=== PATIENT | female | born 1940 | race Caucasian/White ===

== ENCOUNTER 2016-07-22 15:47 | Emergency (ER) | payer OTHER ==
[~2016-07-22] VITALS: Ht 167.6 cm; Wt 111.7 kg
[~2016-07-22 15:47] MED LIST: BUMEX2 MG PO; FLEXERIL10 MG PO; HUMALOG MI100 UNIT/1 IJ; K-DUR20 MEQ PO; LEVEMIR FL100 UNIT/1 IJ; MECLIZINE HCL25 MG PO; METOPROLOL TAR100 MG PO; PERCOCET 7.51 TABLET PO; SIMVASTATIN20 MG PO; SYNTHROID100 MCG PO
[2016-07-22 17:14] LABS: INTER. NORMALIZED RATIO 1.1; PROTHROMBIN TIME 10.7 (9.2-11.2)
[2016-07-22 17:35] LABS: EOSINOPHIL (%) 1.3 % (0-5); EOSINOPHIL COUNT 0.2 K/uL (0-0.3); HEMATOCRIT 41.2 % (36.0-46.0); IMMATURE GRANULOCYTE (%) 0.3 % (0.0-0.7); IMMATURE GRANULOCYTE COUNT 0.3 K/uL; LYMPHOCYTE COUNT 1.2 K/uL (1.0-2.8); MCH 30.7 PG (29.0-34.0); MCHC 34.5 G/DL (30.0-36.0); MCV 89.2 FL (83-99); MEAN PLAT.VOLUME 10.5 uM^3 (9.5-12.4); MONOCYTE (%) 4.3 % (3-12); MONOCYTE COUNT 0.5 K/uL (0-0.8); NEUTROPHIL (%) 83.4 % (45-76); NEUTROPHIL COUNT 9.9 K/uL (1.8-6.4); PLATELET COUNT 180 K/uL (156-360); RBC DIS.WIDTH-CV 12.5 % (11.8-14.6); RBC DIS.WIDTH-SD 39.9 % (39-53); RED BLOOD COUNT 4.62 M/uL (3.80-5.20); WHITE BLOOD COUNT 11.9 K/uL (4.1-10.2)
[2016-07-22 17:48] LABS: CHLORIDE 104 mEq/L (99-109); POTASSIUM 4.6 mEq/L (3.7-5.4); SODIUM 138 mEq/L (136-147)
[2016-07-22 17:50] LABS: GLUCOSE 372 mg/dL (70-99)
[2016-07-22 17:52] LABS: ANION GAP 10 MEQ/L (2-14)
[2016-07-22 17:54] LABS: GFR ESTIMATE (CALCULATED) 42 mL/min/
[2016-07-22 17:55] LABS: UREA NITROGEN (BUN) 17 mg/dL (9-23)
[2016-07-22 17:57] LABS: TROP-I INTERPRETATION NEGATIVE; TROPONIN-I < 0.01 ng/mL (0.0-0.30)
[2016-07-22] MEDS ORDERED: PERCOCET 5/31 TABLET PO (20:44)
[2016-07-22 21:11] LABS: POINT-OF-CARE METER ID UU13113702
[2016-07-22 21:25] VITALS: BP 146/62
[2016-07-23 07:33] LABS: POINT-OF-CARE METER ID UU13113702
== END 2016-07-22 22:00 | disposition home or self-care (01) ==
LOC: EME 15:47
PROVIDERS: Emergency Medicine
PROC: 2W39X1Z Immobilization of Left Upper Extremity using Splint (ICD-10-PCS; principal; 2016-07-22)
DX: S42.202A Unspecified fracture of upper end of left humerus, initial encounter for closed fracture (principal); S02.2XXA Fracture of nasal bones, initial encounter for closed fracture; E11.9 Type 2 diabetes mellitus without complications; E78.5 Hyperlipidemia, unspecified; W01.198A Fall on same level from slipping, tripping and stumbling with subsequent striking against other object, initial encounter; I10 Essential (primary) hypertension; E03.9 Hypothyroidism, unspecified; Z88.0 Allergy status to penicillin
CPT/HCPCS: 70450; 70486; 71010; 72125; 73060; 73502; 80048; 81003; 82948; 84484; 85025; 85610; 85730; 93005; 99281; 99285; J2405; J3010; J7030; S0028

== ENCOUNTER 2016-10-21 06:49 | Inpatient (IN) | payer OTHER ==
[2016-10-21] VITALS (9 sets, daily range): BP systolic 77–161; BP diastolic 52–70
[~2016-10-21] VITALS: Ht 167.6 cm; Wt 115.1 kg
[~2016-10-21 06:49] MED LIST changes: +PERCOCET 5/31 TABLET PO
[2016-10-21 07:52] LABS: HEMATOCRIT 39.4 % (36.0-46.0); MCH 29.8 PG (29.0-34.0); MCHC 33.8 G/DL (30.0-36.0); MCV 88.3 FL (83-99); MEAN PLAT.VOLUME 10.4 uM^3 (9.5-12.4); PLATELET COUNT 228 K/uL (156-360); RBC DIS.WIDTH-CV 12.1 % (11.8-14.6); RBC DIS.WIDTH-SD 38.7 % (39-53); RED BLOOD COUNT 4.46 M/uL (3.80-5.20); WHITE BLOOD COUNT 7.9 K/uL (4.1-10.2)
[2016-10-21 08:08] LABS: CHLORIDE 106 mEq/L (99-109); SODIUM 138 mEq/L (136-147)
[2016-10-21 08:10] LABS: GLUCOSE 386 mg/dL (70-99)
[2016-10-21 08:11] LABS: ANION GAP 7 MEQ/L (2-14)
[2016-10-21 08:12] LABS: TOTAL BILIRUBIN 2.1 mg/dL (0.0-1.0)
[2016-10-21 08:13] LABS: ALKALINE PHOSPHATASE 253 IU/L (3-129)
[2016-10-21 08:14] LABS: GFR ESTIMATE (CALCULATED) 46 mL/min/
[2016-10-21 08:15] LABS: TROP-I INTERPRETATION NEGATIVE; TROPONIN-I < 0.01 ng/mL (0.0-0.30); UREA NITROGEN (BUN) 16 mg/dL (9-23)
[2016-10-21 08:17] LABS: LIPASE 45 U/L (1.0-51.0)
[2016-10-21 08:44] LABS: ADD MIUA? YES; BILIRUBIN NEGATIVE; BLOOD SMALL; COLOR YELLOW ((YELLOW)); GLUCOSE (STRIP) >=500; KETONES NEGATIVE; LEUKOCYTES NEGATIVE; NITRITE NEGATIVE; PROTEIN (STRIP) 30; SPECIFIC GRAVITY 1.028 (1.000-1.030); UROBILINOGEN 0.2 MG/DL (0.2-1.0)
[2016-10-21 09:13] LABS: BACTERIA NONE SEEN /HPF; EPITHELIAL CELLS 1+ /HPF; GRANULAR CASTS 0-5 /LPF; MUCUS TRACE /LPF; RED BLOOD CELLS 0-5 /HPF (0-5)
[2016-10-21 10:12] LABS: POINT-OF-CARE METER ID UU14100415
[2016-10-21 11:18] LABS: POINT-OF-CARE METER ID UU14100415
[2016-10-21] MEDS ORDERED: TOPROL XL25 MG PO (12:51)
[2016-10-21] MEDS ORDERED: AZITHROMYCIN250 MG PO (12:53)
[2016-10-21] MEDS ORDERED: MAG-OXIDE400 MG PO (12:54)
[2016-10-21] MEDS ORDERED: TRAMADOL HCL50 MG PO (12:55)
[2016-10-21] MEDS ORDERED: NOVOLOG 10100 UNITS/ SC (13:57)
[2016-10-21] MEDS ORDERED: TOUJEO SOL300 UNIT/1 SC (13:59)
[2016-10-21 15:01] LABS: HDL CHOLESTEROL 38 MG/DL (Desirable>=50); LDL CHOLESTEROL 56 mg/dL (Desirable<100); NON-HDL CHOLESTEROL 79 mg/dL (Desirable<160); TOTAL CHOLESTEROL 117 mg/dL (Desirable<200); TRIGLYCERIDES 114 MG/DL (Normal: <150)
[2016-10-21 15:06] LABS: Estimated Average Glucose 229 mg/dL (70-123); HEMOGLOBIN A1c (GLYCOHEMOGLOB) 9.6 % HGB (Below 5.7)
[2016-10-21 15:10] LABS: DIRECT BILIRUBIN 1.2 mg/dL (0.0-0.3)
[2016-10-21 19:56] LABS: INTER. NORMALIZED RATIO 1.1; PROTHROMBIN TIME 10.9 (9.2-11.2); PTT 25.7 (25-32)
[2016-10-21 21:28] LABS: POINT-OF-CARE METER ID UU13113725
[2016-10-22 00:15] VITALS: BP 131/64
[2016-10-22 02:21] LABS: POINT-OF-CARE METER ID UU13113725
[2016-10-22 04:14] VITALS: BP 154/66
[2016-10-22 05:52] LABS: POINT-OF-CARE METER ID UU13113725
[2016-10-22 07:48] VITALS: BP 167/94
[2016-10-22 09:04] LABS: EOSINOPHIL (%) 4.3 % (0-5); EOSINOPHIL COUNT 0.2 K/uL (0-0.3); HEMATOCRIT 36.7 % (36.0-46.0); IMMATURE GRANULOCYTE (%) 0.4 % (0.0-0.7); INSTRUMENT ABS NEUTROPHIL CT 2.8 K/uL; LYMPHOCYTE COUNT 1.6 K/uL (1.0-2.8); MCH 29.8 PG (29.0-34.0); MCHC 32.4 G/DL (30.0-36.0); MEAN PLAT.VOLUME 10.7 uM^3 (9.5-12.4); MONOCYTE (%) 7.1 % (3-12); MONOCYTE COUNT 0.4 K/uL (0-0.8); NEUTROPHIL (%) 55.5 % (45-76); NEUTROPHIL COUNT 2.8 K/uL (1.8-6.4); PLATELET COUNT 180 K/uL (156-360); RBC DIS.WIDTH-CV 12.8 % (11.8-14.6); RBC DIS.WIDTH-SD 42.6 % (39-53); RED BLOOD COUNT 3.99 M/uL (3.80-5.20); WHITE BLOOD COUNT 5.1 K/uL (4.1-10.2)
[2016-10-22 09:19] LABS: ALKALINE PHOSPHATASE 276 IU/L (3-129); ANION GAP 8 MEQ/L (2-14); CHLORIDE 108 MEQ/L (99-109); DIRECT BILIRUBIN 2.5 mg/dL (0.0-0.3); GFR ESTIMATE (CALCULATED) > 59 mL/min/; GLUCOSE 126 mg/dL (70-99); POTASSIUM 4.3 MEQ/L (3.7-5.4); SAMPLE HEMOLYSIS CHECK 0; SAMPLE ICTERIC CHECK 1; SAMPLE LIPEMIA CHECK 0; SODIUM 139 MEQ/L (136-147); TOTAL BILIRUBIN 3.5 MG/DL (0.0-1.0); UREA NITROGEN (BUN) 11 mg/dL (9-23)
[2016-10-22 10:56] LABS: POINT-OF-CARE METER ID UU13113725
[2016-10-22 11:44] VITALS: BP 145/65
[2016-10-22 16:51] VITALS: BP 143/62
[2016-10-22 19:18] LABS: POINT-OF-CARE METER ID UU13113725
[2016-10-22 19:47] VITALS: BP 156/59
[2016-10-22 21:32] LABS: POINT-OF-CARE METER ID UU13113725
[2016-10-23 00:04] VITALS: BP 165/71
[2016-10-23 03:25] VITALS: BP 141/63
[2016-10-23 06:10] LABS: POINT-OF-CARE METER ID UU13113725
[2016-10-23 07:18] VITALS: BP 158/63
[2016-10-23 08:27] LABS: CHLORIDE 108 mEq/L (99-109); SODIUM 139 mEq/L (136-147)
[2016-10-23 08:31] LABS: ANION GAP 8 MEQ/L (2-14)
[2016-10-23 08:33] LABS: ALKALINE PHOSPHATASE 304 IU/L (3-129); GFR ESTIMATE (CALCULATED) > 59 mL/min/
[2016-10-23 08:34] LABS: UREA NITROGEN (BUN) 6 mg/dL (9-23)
[2016-10-23 08:42] LABS: GLUCOSE 206 mg/dL (70-99); TOTAL BILIRUBIN 4.6 mg/dL (0.0-1.0)
[2016-10-23 09:03] LABS: POINT-OF-CARE METER ID UU13113694
[2016-10-23 11:46] LABS: POINT-OF-CARE METER ID UU13113675
[2016-10-23 15:33] VITALS: BP 140/59
[2016-10-23 19:17] VITALS: BP 144/65
[2016-10-23 22:02] LABS: POINT-OF-CARE METER ID UU13113725
[2016-10-23 23:06] VITALS: BP 132/58
[2016-10-24 03:50] VITALS: BP 126/63
[2016-10-24 07:36] LABS: ANION GAP 8 MEQ/L (2-14); CHLORIDE 104 MEQ/L (99-109); DIRECT BILIRUBIN 4.5 mg/dL (0.0-0.3); GFR ESTIMATE (CALCULATED) > 59 mL/min/; GLUCOSE 292 mg/dL (70-99); POTASSIUM 4.2 MEQ/L (3.7-5.4); SAMPLE HEMOLYSIS CHECK 0; SAMPLE ICTERIC CHECK 2; SAMPLE LIPEMIA CHECK 0; SODIUM 137 MEQ/L (136-147); TOTAL BILIRUBIN 6.3 MG/DL (0.0-1.0); UREA NITROGEN (BUN) 9 mg/dL (9-23)
[2016-10-24 07:37] LABS: ALKALINE PHOSPHATASE 357 IU/L (3-129)
[2016-10-24 07:52] VITALS: BP 138/78
[2016-10-24] MEDS ORDERED: LOPRESSOR25 MG PO (14:02)
[2016-10-24 16:45] VITALS: BP 131/59
[2016-10-25 00:01] VITALS: BP 170/90
[2016-10-25 07:18] VITALS: BP 178/72
[2016-10-25 09:01] LABS: ALKALINE PHOSPHATASE 344 IU/L (3-129); ANION GAP 10 MEQ/L (2-14); CHLORIDE 105 MEQ/L (99-109); GFR ESTIMATE (CALCULATED) 57 mL/min/; GLUCOSE 244 mg/dL (70-99); POTASSIUM 3.7 MEQ/L (3.7-5.4); SAMPLE HEMOLYSIS CHECK 0; SAMPLE ICTERIC CHECK 1; SAMPLE LIPEMIA CHECK 0; SODIUM 140 MEQ/L (136-147); UREA NITROGEN (BUN) 12 mg/dL (9-23)
[2016-10-25 09:02] LABS: TOTAL BILIRUBIN 4.6 MG/DL (0.0-1.0)
[2016-10-25 11:34] LABS: POINT-OF-CARE METER ID UU13113725
== END 2016-10-25 15:00 | disposition home or self-care (01) | DRG 445 ==
LOC: EME 06:49 → EDOF 13:32 → 5EAST 13:32
PROVIDERS: Hospitalist; Nurse Practitioner Family
DX: K80.51 Calculus of bile duct without cholangitis or cholecystitis with obstruction (principal); Z68.41 Body mass index [BMI] 40.0-44.9, adult; E03.9 Hypothyroidism, unspecified; E78.5 Hyperlipidemia, unspecified; I10 Essential (primary) hypertension; G89.29 Other chronic pain; M54.9 Dorsalgia, unspecified; E11.65 Type 2 diabetes mellitus with hyperglycemia; K57.10 Diverticulosis of small intestine without perforation or abscess without bleeding; E66.9 Obesity, unspecified; Z79.4 Long term (current) use of insulin; Z88.0 Allergy status to penicillin; Z87.891 Personal history of nicotine dependence; Z60.2 Problems related to living alone; Z80.9 Family history of malignant neoplasm, unspecified; Z82.49 Family history of ischemic heart disease and other diseases of the circulatory system
CPT/HCPCS: 71020; 74177; 74330; 80048; 80053; 80061; 80076; 81003; 82010; 82248; 82948; 83036; 83690; 84484; 85025; 85027; 85610; 85730; 87081; 87493; 93005; 94640; 99202; 99281; 99285; C1726; C1757; C1769; J0330; J1815; J1885; J2270; J2405; J3010; J7030; J7040